=== PATIENT | male | born 1960 | race Caucasian/White ===

== ENCOUNTER 2024-08-14 13:09 | Outpatient (CLI) | payer BC, SELFPAY ==
--- NOTE | ~2024-08-14 | CT_ITS ---
Non-contrast CT scan of the Abdomen and Pelvis Clinical indication: Flank pain Technique: 2.5 mm axial scans were obtained through the abdomen and pelvis without intravenous or or al contrast. Dose reduction technique was used on this scan by utilizing automated exposure control a nd iterative reconstruction technique. The dose-length product (DLP) was 345.64 mGy-cm. COMPARISON: 09/08/2010 Findings: Images through the lung bases reveal no abnormalities. Severe bilateral hydronephrosis with proximal hydroureter is similar to prior exam, left worse than right. The liver, spleen, pancreas, gallbladder, and adrenals appear normal. There is no aortic aneurysm. There is no evidence of bowel obstruction. Images through the pelvis were performed. There is no evidence of ascites or lymphadenopathy. Suspect ed prior cystectomy with ileal conduit. No pelvic mass evident. Impression: Severe bilateral hydronephrosis and proximal hydroureter is similar to prior exam. No stone evident. No suspicious mass evident. Suspected prior cystectomy with ileal conduit. Correlate with surgical history. Reviewed, dictated and finalized at [facility]. Impression: Severe bilateral hydronephrosis and proximal hydroureter is similar to prior ex am. No stone evident. No suspicious mass evident. Suspected prior cystectomy with ileal conduit. Correlate with surgical history.
== END 2024-08-14 13:10 | disposition home or self-care (01) ==
LOC: MICIMG 13:13
PROVIDERS: PCP Nurse Practitioner Family; Visit Provider Nurse Practitioner Family
DX: N13.39 Other hydronephrosis (principal); N13.4 Hydroureter
CPT/HCPCS: 74176